=== PATIENT | male | born 1990 | race Caucasian/White ===

== ENCOUNTER 2021-11-06 08:47 | Emergency (ER) | payer BC ==
[~2021-11-06] VITALS: Ht 200.7 cm; Wt 127.3 kg
[2021-11-06 09:59] VITALS: BP 147/92; PULSE 88; TEMP 99
== END 2021-11-06 10:03 | disposition home or self-care (01) ==
LOC: COL.ER 08:47
DX: U07.1 COVID-19 (principal)